=== PATIENT | male | born 1940 | race Caucasian/White ===

== ENCOUNTER 2019-06-06 09:01 | Day surgery (SDC) | payer MEDICARE ==
[~2019-06-06] VITALS: Ht 177.8 cm; Wt 96.6 kg
[2019-06-06 09:28] VITALS: BP 132/70
[2019-06-06] MEDS ORDERED: LACTATED RINGERS 1,000 ML IV SCH (09:31)
[2019-06-06] MEDS ORDERED: ATOR10TA9 PO (10:06)
[2019-06-06] MEDS ORDERED: ALBUTEROL INH (10:06)
[2019-06-06] MEDS ORDERED: FINA5TAB4 PO (10:06)
[2019-06-06] MEDS ORDERED: TAMS-11 PO (10:06)
[2019-06-06] MEDS ORDERED: FENTANYL PF 100 MCG/2ML ONE ×2 (11:51→13:13)
[2019-06-06] MEDS ORDERED: PROPOFOL 10 MG/ML, 20ML ONE (13:32)
[2019-06-06] MEDS ORDERED: NEOSTIGMINE 1 MG/ML, 10ML ONE (13:32)
[2019-06-06] MEDS ORDERED: ROCURONIUM 10MG/ML,5ML ONE (13:32)
[2019-06-06] MEDS ORDERED: SUCCINYLCHOLINE 20 MG/ML, 10ML ONE (13:32)
[2019-06-06] MEDS ORDERED: ONDANSETRON 2MG/ML, 2ML ONE (13:32)
[2019-06-06] MEDS ORDERED: CEFAZOLIN 1,000 MG ONE (13:32)
[2019-06-06] MEDS ORDERED: DEXAMETHASONE 4 MG/ML, 1ML ONE (13:32)
[2019-06-06] MEDS ORDERED: GLYCOPYRROLATE 0.2MG/1ML, 5ML ONE (13:32)
[2019-06-06] MEDS ORDERED: OMNIPAQUE 350 MG/ML, 50 ML BOTTLE ONE (13:49)
== END 2019-06-06 16:00 | disposition home or self-care (01) ==
LOC: OUT 09:01
PROVIDERS: ATTEND Internal Medicine Geriatric Medicine
DX: K83.1 Obstruction of bile duct (principal); J45.909 Unspecified asthma, uncomplicated; E78.5 Hyperlipidemia, unspecified; N40.0 Benign prostatic hyperplasia without lower urinary tract symptoms; Z79.01 Long term (current) use of anticoagulants; Z86.718 Personal history of other venous thrombosis and embolism; Z88.5 Allergy status to narcotic agent
CPT/HCPCS: 43242; 43276; 74328; 88172; 88173; 88307; 93005; C1769; C1894; C2625; J1100; J2405; J2704; J2710; J3010; J7120; Q9967; J0690; J0330

== ENCOUNTER 2019-06-16 11:02 | Day surgery (SDC) | payer MEDICARE ==
[~2019-06-16] VITALS: Ht 177.8 cm; Wt 95.7 kg
[~2019-06-16 11:02] MED LIST: ALBUTEROL INH; ATOR10TA9 PO; FINA5TAB4 PO; TAMS-11 PO
[2019-06-16] MEDS ORDERED: OMEP-110 PO (11:41)
[2019-06-16] MEDS ORDERED: RIVA20TA PO (11:41)
[2019-06-16 11:42] VITALS: BP 125/73
[2019-06-16] MEDS ORDERED: LACTATED RINGERS 1,000 ML IV SCH (11:44)
[2019-06-16] MEDS ORDERED: SUCCINYLCHOLINE 20 MG/ML, 10ML ONE (12:44)
[2019-06-16] MEDS ORDERED: FENTANYL PF 100 MCG/2ML ONE (12:44)
[2019-06-16] MEDS ORDERED: MEPERIDINE/PF 25MG/ML,1ML IVPush PRN (13:00)
[2019-06-16] MEDS ORDERED: HYDROmorphone 2 MG/ML, 1ML IVPush PRN (13:00)
[2019-06-16] MEDS ORDERED: LABETALOL 5MG/ML, 20ML IV PRN (13:00)
[2019-06-16] MEDS ORDERED: FENTANYL PF 100 MCG/2ML IV PRN (13:00)
[2019-06-16] MEDS ORDERED: ACETAMINOPHEN 325 MG TABLET PO PRN (13:00)
[2019-06-16] MEDS ORDERED: PROMETHAZINE 25 MG/ML, 1ML IV PRN (13:00)
[2019-06-16] MEDS ORDERED: hydrALAzine 20 MG/ML, 1ML IV PRN (13:00)
[2019-06-16] MEDS ORDERED: OXYcodone 5 MG/5 ML ORAL.SOL UDC PO PRN (13:00)
[2019-06-16] MEDS ORDERED: ONDANSETRON 2MG/ML, 2ML IV PRN (13:00)
[2019-06-16] MEDS ORDERED: ROCURONIUM 10MG/ML,5ML ONE (13:06)
[2019-06-16] MEDS ORDERED: ONDANSETRON 2MG/ML, 2ML ONE (13:06)
[2019-06-16] MEDS ORDERED: DEXAMETHASONE 4 MG/ML, 1ML ONE ×2 (13:14)
[2019-06-16] MEDS ORDERED: PROPOFOL 10 MG/ML, 20ML ONE ×2 (13:14)
== END 2019-06-16 16:40 | disposition home or self-care (01) ==
LOC: OUT 11:02
PROVIDERS: ATTEND Internal Medicine
DX: K86.89 Other specified diseases of pancreas (principal); K86.1 Other chronic pancreatitis; J44.9 Chronic obstructive pulmonary disease, unspecified; Z79.01 Long term (current) use of anticoagulants; Z79.899 Other long term (current) drug therapy; Z88.5 Allergy status to narcotic agent; Z86.718 Personal history of other venous thrombosis and embolism
CPT/HCPCS: 43242; 88172; 88173; 88177; 88307; J0330; J1100; J2405; J2704; J3010

== ENCOUNTER 2019-08-10 08:31 | Outpatient (CLI) | payer MEDICARE ==
[~2019-08-10 08:31] MED LIST changes: +OMEP-110 PO; +RIVA20TA PO
[2019-08-10] MEDS ORDERED: OMNIPAQUE 350 MG/ML, 100ML BOTTLE ONE (09:35)
== END 2019-08-10 23:59 | disposition home or self-care (01) ==
LOC: CFH 08:31 → MERGE 09:30 → CFH 23:59
PROVIDERS: ATTEND Internal Medicine Geriatric Medicine
DX: I71.4 Abdominal aortic aneurysm, without rupture (principal); K76.89 Other specified diseases of liver; N28.1 Cyst of kidney, acquired; M47.816 Spondylosis without myelopathy or radiculopathy, lumbar region; Z87.19 Personal history of other diseases of the digestive system
CPT/HCPCS: 74170; Q9967

== ENCOUNTER 2019-08-15 06:41 | Day surgery (SDC) | payer MEDICARE ==
[~2019-08-15] VITALS: Ht 177.8 cm; Wt 93.8 kg
[2019-08-15] MEDS ORDERED: LACTATED RINGERS 1,000 ML IV SCH (07:09)
[2019-08-15 07:22] VITALS: BP 121/70
[2019-08-15] MEDS ORDERED: LIDOCAINE-MPF 1%, 2ML INFIL ONE (07:30)
[2019-08-15] MEDS ORDERED: FENTANYL PF 100 MCG/2ML IV PRN (08:30)
[2019-08-15] MEDS ORDERED: ACETAMINOPHEN 325 MG TABLET PO PRN (08:30)
[2019-08-15] MEDS ORDERED: ONDANSETRON 2MG/ML, 2ML IV PRN (08:30)
[2019-08-15] MEDS ORDERED: OXYcodone 5 MG/5 ML ORAL.SOL UDC PO PRN (08:30)
[2019-08-15] MEDS ORDERED: FENTANYL PF 100 MCG/2ML ONE (08:46)
[2019-08-15] MEDS ORDERED: PROPOFOL 50 ML ONE (08:51)
== END 2019-08-15 11:50 | disposition home or self-care (01) ==
LOC: OUT 06:41
PROVIDERS: ATTEND Internal Medicine Geriatric Medicine
DX: Z46.59 Encounter for fitting and adjustment of other gastrointestinal appliance and device (principal); K85.90 Acute pancreatitis without necrosis or infection, unspecified; J44.9 Chronic obstructive pulmonary disease, unspecified; K83.1 Obstruction of bile duct; N40.0 Benign prostatic hyperplasia without lower urinary tract symptoms; Z79.01 Long term (current) use of anticoagulants; Z79.899 Other long term (current) drug therapy; Z86.718 Personal history of other venous thrombosis and embolism; Z88.5 Allergy status to narcotic agent
CPT/HCPCS: 43264; 43276; 74328; C1769; C1894; C2625; J2704; J3010

== ENCOUNTER 2019-10-31 05:41 | Day surgery (SDC) | payer MEDICARE ==
[~2019-10-31] VITALS: Ht 177.8 cm; Wt 97.5 kg
[~2019-10-31 05:41] MED LIST changes: +PRED10TA PO
[2019-10-31] MEDS ORDERED: LACTATED RINGERS 1,000 ML IV SCH (06:05)
[2019-10-31 06:09] VITALS: BP 135/83
[2019-10-31] MEDS ORDERED: CHLORHEXIDINE 15 ML UDC MM STA (06:11)
[2019-10-31] MEDS ORDERED: FENTANYL PF 100 MCG/2ML IV PRN (08:00)
[2019-10-31] MEDS ORDERED: hydrALAzine 20 MG/ML, 1ML IV PRN (08:00)
[2019-10-31] MEDS ORDERED: ONDANSETRON 2MG/ML, 2ML IV PRN (08:00)
[2019-10-31] MEDS ORDERED: LABETALOL 5MG/ML, 20ML IV PRN (08:00)
[2019-10-31] MEDS ORDERED: OXYcodone 5 MG/5 ML ORAL.SOL UDC PO PRN (08:00)
[2019-10-31] MEDS ORDERED: ACETAMINOPHEN 325 MG TABLET PO PRN (08:00)
[2019-10-31] MEDS ORDERED: PROPOFOL 10 MG/ML, 20ML ONE (08:13)
[2019-10-31] MEDS ORDERED: SUGAMMADEX 200 MG/2 ML IVPush ONE (08:13)
[2019-10-31] MEDS ORDERED: ROCURONIUM 10 MG/ML,10ML ONE (08:13)
[2019-10-31] MEDS ORDERED: OMNIPAQUE 350 MG/ML, 50 ML BOTTLE ONE (08:57)
== END 2019-10-31 10:40 | disposition home or self-care (01) ==
LOC: OUT 05:41
PROVIDERS: ATTEND Internal Medicine Geriatric Medicine
DX: Z46.59 Encounter for fitting and adjustment of other gastrointestinal appliance and device (principal); K85.90 Acute pancreatitis without necrosis or infection, unspecified; K80.51 Calculus of bile duct without cholangitis or cholecystitis with obstruction; K21.9 Gastro-esophageal reflux disease without esophagitis; E78.5 Hyperlipidemia, unspecified; Z88.5 Allergy status to narcotic agent; Z87.891 Personal history of nicotine dependence; Z86.718 Personal history of other venous thrombosis and embolism
CPT/HCPCS: 43264; 43275; 74328; 93005; C1769; J2704; J7120; Q9967